=== PATIENT | female | born 1985 | race Caucasian/White ===

== ENCOUNTER 2018-12-28 19:15 | Outpatient (CLI) | payer OTHER, SELFPAY ==
[2018-12-28 20:10] VITALS: BMI 24.1
[2018-12-28 20:42] LABS: ROM Internal Control Test YES-OK TO RESULT pt. (Internal QC); ROM Patient Test Negative (Negative); Record Kit Lot#, ROM+ J7836
--- NOTE | 2018-12-31 09:13 | OB.TRI.NOTE ---
History of Present Illness Was patient seen by the physician?: No Reason For Visit: RULE OUT RUPTURED MEMBRANE Date of Service: 12/28/18 Final PANKAJ: 05/15/19 Final PANKAJ Source: US <20 weeks Gestational age: 20 Weeks and 2 Days History of Present Illness: 20+ week intrauterine with sudden gush of fluid at home. Concerned that her water may be broke. Allergies No Known Allergies Allergy (Verified 12/28/18 20:06) Laboratory Studies: Laboratory Tests 12/28/18 Range/Units 19:44 Vag Amniotic Fld Detect Negative (Negative) NST - FHR Rate Baby A NST Reactive:: Appropriate for gestational age Impression/Plan 20+ week intrauterine with vaginal discharge, likely urine. heart tones present. ROM plus test negative. Cervix is closed and thick. heart tones noted and no contractions noted or seen on monitor. Routine follow-up in the office.
== END 2018-12-28 20:57 | disposition home or self-care (01) ==
PROVIDERS: Visit Provider Obstetrics & Gynecology
DX: O26.892 Other specified pregnancy related conditions, second trimester (principal); N89.8 Other specified noninflammatory disorders of vagina; Z3A.20 20 weeks gestation of pregnancy
CPT/HCPCS: 59025; 59050; 84112; 99218; G0378

== ENCOUNTER → 2019-02-17 | Outpatient (CLI) | payer OTHER, SELFPAY ==
[2019-02-17 10:48] LABS: Glucose Challenge Gest 1H 50g 125 mg/dL (70-140)
[2019-02-17 10:51] LABS: Mean Corp Hgb Conc 31.4 g/gl (32-36); Mean Corpuscular Hgb 27.8 pg (27.0-32.0); Mean Corpuscular Volume 88.4 fL (81-99); Mean Platelet Vol. 10.7 fl (6.2-12.0); Platelet Count 215 K/mm3 (150-450); RBC Distribution Width CV 13.1 % (11.6-14.6); RBC Distribution Width SD 40.9 fl (35.1-43.9); Red Blood Count 3.96 M/mm3 (4.2-5.4)
[2019-02-17 11:06] LABS: Scan Indicated on CBC? Y/N NO
== END | disposition home or self-care (01) ==
LOC: WOBLAB 09:27
PROVIDERS: Visit Provider Obstetrics & Gynecology
DX: Z34.82 Encounter for supervision of other normal pregnancy, second trimester (principal)
CPT/HCPCS: 36415; 82950; 85027

== ENCOUNTER → 2019-04-28 11:37 | Outpatient (CLI) | payer OTHER, SELFPAY | PROVIDERS: Visit Provider Obstetrics & Gynecology | DX: Z36.85 Encounter for antenatal screening for Streptococcus B (principal) | CPT/HCPCS: 87077; 87081; 87186 ==

== ENCOUNTER 2019-05-16 21:40 | Inpatient (IN) | payer OTHER, SELFPAY ==
[2019-05-16] MEDS: Lactated Ringers 1,000 ML 50 ML IV (22:05)
[2019-05-16 22:08] VITALS: BMI 26.7
--- NOTE | 2019-05-16 22:11 | PCM.HPOB.BLA ---
History and Physical Date of Admission: 05/16/19 OB HISTORY AND PHYSICAL EXAMINATION History of this : 34 yo female Ab1 with EDC 05/15/2019 by 14 weeks 3 days Ultrasound, presents to Labor and Delivery with CC of contractions. care remarkable for - A positive Rubella immune. GBS positive 1.) POLYHYDRAMNIOS at 28 wk,NSTs 2.) Choroid plexus cysts at 20 wk sono - -RESOLVED at follow up 3. ) hx of rapid labors Pertinent Past Medical History: Negative Allergies: NKDA Medications: During - 28 mg-800 mcg tablet Review of Systems: Non-contributory PHYSICAL EXAMINATION General Appearance: 34 yo female uncomfortable with UCs. Vital Signs: AF, VSS Heart: RRR without rubs or gallops Lungs: regular Breasts: deferred Abdomen: gravid Pelvis: Cervix: 6/75/-1 IBOW Presentation: cephalic Fetus: Size: AGA Movement: present Heart: 140s avg variability. Accels to 170-180s UCs q 4-5 mins Impression /Plan: Intrauterine . 40 1/7 wk EGA. Labor. Admit. Epidural if time. GBS positive PCN for prophylaxis H and P generated at time of admission. Patient seen and examined. See Progress Notes for Changes: Physician's Signature: Date: Nate Stoddard MD 05/16/19 [id number]
[2019-05-16 22:39] LABS: Absolute Lymphocyte Count 1.69 X10^3/ul (0.83-4.51); Absolute Neutrophil Count 5.3 X10^3/uL (2.0-7.7); Basophil# 0.01 X10^3/uL; Basophil% 0.1 % (0-1); Eosinophil# 0.03 X10^3/uL; Eosinophils% 0.4 % (0-5); Hematocrit 37.3 % (37-47); Hemoglobin 11.9 g/dl (12.0-15.0); Lymphocyte # 1.69 X10^3/ul (4.0); Lymphocyte % 22.2 % (19-41); Mean Corp Hgb Conc 31.9 g/gl (32-36); Mean Corpuscular Hgb 26.4 pg (27.0-32.0); Mean Corpuscular Volume 82.9 fL (81-99); Mean Platelet Vol. 11.1 fl (6.2-12.0); Monocyte# 0.58 X10^3/uL; Monocyte% 7.6 % (0-10); Neutrophil # 5.27 X10^3/uL (2.7-7.7); Neutrophil % 69.4 % (47-70); Platelet Count 172 K/mm3 (150-450); RBC Distribution Width CV 14.9 % (11.6-14.6); White Blood Count 7.6 K/mm3 (4.4-11.0)
[2019-05-16 22:43] LABS: POSITIVE COUNT NO; POSITIVE DIFFERENTIAL NO; POSITIVE MORPHOLOGY NO
[2019-05-16 23:40] LABS: HIV - WCH Non-Reactive (Nonreactive)
[2019-05-16] MEDS: Oxytocin 30 units/NS 500 ml 30 UNITS/500 ML IV.SOLN 334 UNITS IV (23:44)
--- NOTE | 2019-05-16 23:59 | PCM.OPRPT ---
Vaginal Delivery Maternal Presentation: Active Labor 40 1/7 wk labor Amniotic Membrane Rupture Type: Artificial Amniotic Fluid Description: Clear Final PANKAJ: 05/15/19 Gestational age: 40 Weeks and 1 Days Date of Procedure: 05/16/19 Pre-Operative Diagnosis: 40 1/7 wk Labor Post-Operative Diagnosis: same Surgery/ Procedure Performed: Spontaneous Vaginal Delivery Type of Anesthesia: None Description of Procedure: of a stuart viable male over intact perineum to laceration. Head delivered JOHNSON. No nuchal cord. Shoulders followed rapidly. Infant to maternal abdomen after bulb suctioning at perineum. No cord gases collected, but cord blood for typing collected. PP exam; 2nd deg posterior vaginal to perineal laceration repaired under 1% lidocaine local to hemostatic and intact. no other lacerations noted. Placenta delivered by expulsion, 3V cord, normal appearing and intact with trailing membranes. Ray Bianca and needle counts correct EBL 300 cc Pt and tolerated delivery well. To recovery in stable condition. GBS positive, rapid labor, ABx dose not adequate d/t rapid progress Presentation: Vertex, JOHNSON Placental Delivery Description: Spontaneous, Expressed Placenta Disposition: [facility] Cord Vessel Description: 3 Vessels Cord Entanglement: None Estimated Blood Loss: 300 A gender: Male (1 minute): 8 (5 minute): 9 Episiotomy Description: None Laceration: Midline, Perineal Extension/lac - repaired under 1% lidocaine local to hemostatic, intact with Vicryl Rapide, Vaginal Extension/lac Medications given after delivery: IV Pitocin Complications: None
--- NOTE | 2019-05-17 00:04 | DCINST_ITS ---
Discharge Diet: No Restrictions Discharge Activity: May Shower, May Take a Tub Bath May resume sexual activity in: 4-6 weeks Additional Activity Instructions:: Nothing in the vagina for 4-6 weeks. You may return to work/school in 6 weeks. Additional Instructions: If you experience any of the following, contact your healthcare provider. * Bleeding that soaks a pad every hour for 2 hours * Fever 100.4 or higher * Unrelieved abdominal pain * Problems urinating (including inability to urinate or burning while urinating). * Visual changes * Severe headache * Flu-like symptoms * Pain or redness in one of both of your breasts * Pain, warmth, tenderness or swelling in your legs, especially the calf area * Frequent nausea and vomiting * Symptoms of depression or anxiety If you experience any of the following, call 911 or go to the nearest Emergency Room. * Chest pain * Problems breathing * Seizure activity * Partial or complete paralysis of a body part, slurred speech, weakness or drooping of the face, or a sudden inability to walk or hold your balance Allergies/Adverse Reactions: Allergies No Known Allergies Allergy (Verified 05/16/19 22:06) Medications to take at Discharge Tablet 1 tab PO DAILY 12/28/18 Please Follow Up With: Pretty Stoddard MD - [phone] When: Call to make an appointment with your doctor in 6 weeks. Test Results: Test results from this visit will be discussed in further detail at your follow- up appointment, if applicable. Proposed Discharge Date: 05/19/19
--- NOTE | 2019-05-17 00:04 | PCM.DCVAG ---
Discharge Diet: No Restrictions Discharge Activity: May Shower, May Take a Tub Bath May resume sexual activity in: 4-6 weeks Additional Activity Instructions:: Nothing in the vagina for 4-6 weeks. You may return to work/school in 6 weeks. Additional Instructions: If you experience any of the following, contact your healthcare provider. Bleeding that soaks a pad every hour for 2 hours Fever 100.4 or higher Unrelieved abdominal pain Problems urinating (including inability to urinate or burning while urinating). Visual changes Severe headache Flu-like symptoms Pain or redness in one of both of your breasts Pain, warmth, tenderness or swelling in your legs, especially the calf area Frequent nausea and vomiting Symptoms of depression or anxiety If you experience any of the following, call 911 or go to the nearest Emergency Room. Chest pain Problems breathing Seizure activity Partial or complete paralysis of a body part, slurred speech, weakness or drooping of the face, or a sudden inability to walk or hold your balance Allergies/Adverse Reactions: Allergies No Known Allergies Allergy (Verified 05/16/19 22:06) Medications to take at Discharge Tablet 1 tab PO DAILY 12/28/18 Please Follow Up With: Pretty Stoddard MD - [phone] When: Call to make an appointment with your doctor in 6 weeks. Test Results: Test results from this visit will be discussed in further detail at your follow-up appointment, if applicable. Proposed Discharge Date: 05/19/19
[2019-05-17] MEDS: Oxytocin 30 units/NS 500 ml 30 UNITS/500 ML IV.SOLN 167 UNITS IV (00:15)
[2019-05-17 00:46] LABS: Chlamydia Trachomatis by PCR Negative (Negative); Neisserai gonorrhoeae by PCR Negative (Negative); Probe Check PASS; Sample Adequacy Control PASS; Specimen Processing Control PASS
[2019-05-17 01:50] VITALS: BP 100/64; PULSE 74; RESP 18; TEMP 36.9; O2SAT 97
[2019-05-17] MEDS: 0.9% Saline Lock 10 ML Syringe IV (02:27)
[2019-05-17 04:05] VITALS: BP 115/66; PULSE 71; RESP 18; TEMP 36.7
[2019-05-17 08:30] VITALS: BP 85/53; PULSE 88; RESP 18; TEMP 36.6; O2SAT 98
--- NOTE | 2019-05-17 08:33 | NURSING ---
Ice pack applied.
--- NOTE | 2019-05-17 08:39 | NURSING ---
Patient denies feeling light headed or dizzy. Reports having a lower blood pressure routinely.
[2019-05-17] MEDS: Prenatal Vits Tablet 1 TABLET PO (10:00)
--- NOTE | 2019-05-17 12:28 | PN.OBGYN_ITS ---
Subjective: PPD#0 to 1 VERY late just prior to MN delivery on 05/16/19 LATE ENTRY from rounds this am at approx 0820 Doing well. Nursing. GBS positive, rapid labor and inadequate time for prophylaxis. Minimal pain, cramping more with nursing. Some pain at perineum, ice pack in place. Objective: Sitting up nursing baby. - Physical Exam General: Alert, Oriented x3, Cooperative, No apparent distress HEENT: Atraumatic, EOMI Neck: Supple Psych/Mental Status: Normal Affect Vital Signs Temp Pulse Resp BP Pulse Ox 98 F 88 18 85/53 L 98 05/17/19 08:30 05/17/19 08:30 05/17/19 08:30 05/17/19 08:30 05/17/19 08:30 Oxygen Delivery Method Room Air Weight: 81 kg Body Mass Index (BMI) 26.7 Intake and Output for Last 24 Hours 05/15/19 05/16/19 05/17/19 23:59 23:59 23:59 Intake Total 1424 / 1424 Output Total 600 / 600 Balance 824 / 824 Laboratory Tests Past 24 Hrs 05/16/19 05/16/19 05/16/19 22:05 22:05 22:05 WBC 7.6 RBC 4.50 Hgb 11.9 L Hct 37.3 MCV 82.9 MCH 26.4 L MCHC 31.9 L RDW 14.9 H RDW Differential 44.0 H Plt Count 172 MPV 11.1 Immature Gran % (Auto) 0.300 Neut % (Auto) 69.4 Lymph % (Auto) 22.2 [place] % (Auto) 7.6 Eos % (Auto) 0.4 Baso % (Auto) 0.1 Absolute Neuts (auto) 5.3 Absolute Lymphs (auto) 1.69 Total Counted Not Reportable Chlam trachomat DNA PCR HIV 1&2 Antibody Non-Reactive N.gonorrhoeae DNA (PCR) Blood Type A POSITIVE Antibody Screen NEGATIVE 05/16/19 22:52 WBC RBC Hgb Hct MCV MCH MCHC RDW RDW Differential Plt Count MPV Immature Gran % (Auto) Neut % (Auto) Lymph % (Auto) [place] % (Auto) Eos % (Auto) Baso % (Auto) Absolute Neuts (auto) Absolute Lymphs (auto) Total Counted Chlam trachomat DNA PCR Negative HIV 1&2 Antibody N.gonorrhoeae DNA (PCR) Negative Blood Type Antibody Screen Medical Necessity - Tobacco Use Smoking Status: Never smoker Assessment/Plan PPD#0 to 1 VERY late just prior to MN delivery on 05/16/19 Stable pp. Continue care. Nursing. Plan d/c home potentially LATE on 05/18/19 , depending on baby GBS positive, rapid labor and inadequate time for prophylaxis.
[2019-05-17 13:37] VITALS: BP 104/59; PULSE 71; RESP 18; TEMP 36.6
[2019-05-17 15:44] VITALS: BP 95/54; PULSE 75; RESP 14; TEMP 37.1
[2019-05-17 20:06] VITALS: BP 103/57; PULSE 82; RESP 18; TEMP 36.4; O2SAT 97
[2019-05-18 01:33] VITALS: BP 107/57; PULSE 73; RESP 18; TEMP 36.4; O2SAT 97
[2019-05-18] MEDS: Prenatal Vits Tablet 1 TABLET PO (09:41)
[2019-05-18 10:00] VITALS: BP 103/60; PULSE 68; RESP 16; TEMP 37
[2019-05-18 14:00] VITALS: BP 98/56; PULSE 64; RESP 12; TEMP 36.8
--- NOTE | 2019-05-18 19:22 | PCM.PN.OB ---
Subjective: LATE ENTRY FROM 7-8 am rounds today. PPD# 1-2 very late on 05/16/19 Doing well. Nursing. Minimal pain and more when nursing. Considering dischg to home later today. GBS positive and inadequate time for ABX> - Physical Exam General: Alert, Oriented x3, Cooperative, No apparent distress HEENT: Atraumatic, EOMI Neurological: Cranial nerves II-XII grossly intact Psych/Mental Status: Normal Affect Vital Signs Temp Pulse Resp BP Pulse Ox 98.3 F 64 12 98/56 L 97 05/18/19 14:00 05/18/19 14:00 05/18/19 14:00 05/18/19 14:00 05/18/19 01:33 Oxygen Delivery Method Room Air Weight: 81 kg Body Mass Index (BMI) 26.7 Intake and Output for Last 24 Hours 05/16/19 05/17/19 05/18/19 23:59 23:59 23:59 Intake Total 1424 / 1424 Output Total 600 / 600 Balance 824 / 824 Medical Necessity - Tobacco Use Smoking Status: Never smoker Assessment/Plan PPD#1-2 VERY late just prior to MN delivery on 05/16/19 Stable pp. Continue care. Nursing. Plan d/c home potentially LATE 05/18/19 , depending on baby GBS positive, rapid labor and inadequate time for prophylaxis. Dischg instructions given. RTO In 6 wk for pp check, prn sooner.
== END 2019-05-18 16:20 | disposition home or self-care (01) | DRG 807 ==
PROVIDERS: Admitting Provider Obstetrics & Gynecology; Referring Provider Obstetrics & Gynecology; Visit Provider Obstetrics & Gynecology
DX: O98.82 Other maternal infectious and parasitic diseases complicating childbirth (principal); Z37.0 Single live birth; O70.1 Second degree perineal laceration during delivery; O48.0 Post-term pregnancy; Z3A.40 40 weeks gestation of pregnancy; B95.1 Streptococcus, group B, as the cause of diseases classified elsewhere
CPT/HCPCS: 59025; 59050; 85025; 86703; 86850; 86900; 87491; 87591; 99218; J7120; A4216; G0378

== ENCOUNTER → 2020-08-01 | Outpatient (CLI) | payer OTHER, SELFPAY ==
[2020-08-04 21:41] LABS: HPV APTIMA, High Risk Negative (Negative); HPV Reflexed? YES, CHARGE PATIENT
== END | disposition home or self-care (01) ==
LOC: WOBLAB 13:40
PROVIDERS: Visit Provider Student in an Organized Health Care Education/Training Program
DX: Z12.4 Encounter for screening for malignant neoplasm of cervix (principal)
CPT/HCPCS: 87624; 88175; G0145